=== PATIENT | female | born 1955 | race African-American/Black ===

== ENCOUNTER 2017-01-03 22:50 | Emergency (ER) | payer BC ==
[~2017-01-03] VITALS: Ht 172.7 cm; Wt 83.9 kg
--- NOTE | 2017-01-03 23:07 | NUR ---
PT BIBSELF FROM HOME C/O RIGHT FLANK PAIN/ ABD PAIN X 1 WK WITH BLOOD IN URINE. PT AOX3 RR EVEN AND UNLABORED. NO SOB NOTED. NAD NOTED. NO NVD AT THIS TIME. PT NOT DIAPHORETIC. PT GOWNED AND PLACED ON MONITOR WAITING FOR MD [place]. URINE COLLECTED.
--- NOTE | 2017-01-03 23:16 | NUR ---
DR. RODRIGUEZ AT BEDSIDE FOR EVAL.
[2017-01-03] MEDS ORDERED: ONDANSETRON HCL/PF 4 MG/2 ML VIAL IVP ONE (23:30)
[2017-01-03] MEDS ORDERED: HYDROMORPHONE INJ 2 MG/ML DISP.SYRIN IV ONE (23:30)
[2017-01-03] MEDS ORDERED: ONDANSETRON HCL/PF 4 MG/2 ML VIAL ONE (23:32)
[2017-01-03] MEDS ORDERED: HYDROMORPHONE INJ 2 MG/ML DISP.SYRIN ONE (23:33)
--- NOTE | 2017-01-03 23:38 | NUR ---
PT TO RADIOLOGY FOR CT ABD/PELVIS
[2017-01-03 23:40] LABS: APPEARANCE,URINE CLOUDY (CLEAR); BLOOD, URINE 3+ Ery/uL (NEGATIVE); COLOR,URINE YELLOW (YELLOW); PROTEIN,URINE TRACE mg/dl (NEGATIVE); UGLUCOSE NEGATIVE (NEGATIVE)
[2017-01-03 23:41] LABS: BILIRUBIN,URINE NEGATIVE (NEGATIVE); KETONES,URINE NEGATIVE (NEGATIVE); LEUKOCYTE ESTERASE ,URINE NEGATIVE (NEGATIVE); NITRITE, URINE POSITIVE (NEGATIVE)
[2017-01-03 23:48] LABS: CALCIUM, SERUM 8.8 mg/dL (8.5-10.1); CREATININE 0.8 mg/dL (0.6-1.3); POTASSIUM 3.9 mmol/L (3.5-5.1)
[2017-01-03 23:50] LABS: HEMATOCRIT 41 % (33-45); HEMOGLOBIN 13.5 g/dL (11.5-14.8); LYMPHOCYTES # (AUTO) 1.6 /CMM (0.8-4.8); LYMPHOCYTES % (AUTO) 15.4 % (20.0-44.0); MEAN CORPUSCULAR HEMOGLOBIN 27 PG (26.0-33.0); MEAN CORPUSCULAR HGB CONC 33 g/dl (31.0-36.0); MEAN CORPUSCULAR VOLUME 84 fL (82-100); MONOCYTES # (AUTO) 0.4 /CMM (0.1-1.30); MONOCYTES % (AUTO) 4.2 % (2.0-12.0); NEUTROPHILS # (AUTO) 8.1 /CMM (1.8-8.9); NEUTROPHILS % (AUTO) 80.4 % (43.0-81.0); PLATELET COUNT (AUTO) 220 /CMM (150-450); RDW COEFFICIENT OF VARIATION 14.6 (11.5-15.0); RED BLOOD CELL COUNT(AUTO) 4.92 MIL/uL (4.0-5.2); WHITE BLOOD COUNT (AUTO) 10.1 K/uL (4.3-11.0)
--- NOTE | 2017-01-03 23:51 | NUR ---
PT RETURNED FROM CT.
[2017-01-03 23:54] LABS: ALBUMIN 3.6 g/dL (3.4-5.0); BILIRUBIN,DIRECT 0.1 mg/dL (0.0-0.2); BILIRUBIN,TOTAL 0.5 mg/dL (0.2-1.0); TOTAL PROTEIN, SERUM 8.1 g/dL (6.4-8.2)
[2017-01-03 23:57] LABS: BACTERIA,URINE 4+ /HPF (None Seen); RBC,URINE 81-100 /HPF (0-2); SQUAMOUS EPITHELIAL CELL,UR Rare /HPF (None Seen)
[2017-01-04 00:06] LABS: INR 1.2 (0.87-1.13)
--- NOTE | 2017-01-04 01:18 | NUR ---
DR. RODRIGUEZ AT BEDSIDE SPEAKING TO PT REGARDING RESULTS.
[2017-01-04] MEDS ORDERED: CEPHALEXIN MONOHYDRATE 500 MG CAPSULE PO ONE ×2 (01:20→01:30)
--- NOTE | 2017-01-04 01:52 | NUR ---
IV removed. Catheter intact and site benign. Pressure and 4x4 applied to site. No bleeding noted. Patient discharged to home in stable condition. Written and verbal after care instructions given. Patient verbalizes understanding of instruction. ambulatory with a steady gait. instructed pt not to drive. pt verbalized understanding.
[2017-01-04 01:54] VITALS: BP 135/57
== END 2017-01-04 01:55 | disposition home or self-care (01) ==
LOC: ER 22:52
DX: N12 Tubulo-interstitial nephritis, not specified as acute or chronic (principal); I11.0 Hypertensive heart disease with heart failure; I50.9 Heart failure, unspecified; E05.90 Thyrotoxicosis, unspecified without thyrotoxic crisis or storm
CPT/HCPCS: 36415; 74176; 80048; 80076; 81001; 83690; 85025; 85610; 87077; 87086; 87186 ×2; 96374; 96375; 99285; A4606; J1170; J2405; Z7610; 71250-TC; 81000-TC

== ENCOUNTER 2017-04-02 22:56 | Emergency (ER) | payer BC ==
[~2017-04-02] VITALS: Ht 172.7 cm; Wt 86.2 kg
[2017-04-02] MEDS ORDERED: IBUPROFEN 400 MG TABLET PO ONE (23:30)
--- NOTE | 2017-04-02 23:30 | NUR ---
PT PRESENTED TO THE ER WITH A C/O RT HAND PAIN AND EDEMA S/P FALL. PT STATED THAT SHE TRIED TO BREAK HER FALL AND INJURED HER HAND. PT AMBULATED TO BED #4 AND REC'D AN ICE PACK.
[2017-04-02] MEDS ORDERED: IBUPROFEN 400 MG TABLET ONE (23:59)
--- NOTE | 2017-04-03 00:26 | NUR ---
Patient discharged to home in stable condition. Written and verbal after care instructions given. Patient verbalizes understanding of instruction AND RX. PT IS TAKING A TAXI HOME. VSS.
--- NOTE | 2017-04-03 00:26 | NUR ---
ORTHO GLASS SHORT ARM SPLINT APPLIED.
[2017-04-03 00:27] VITALS: BP 128/81
== END 2017-04-03 00:28 | disposition home or self-care (01) ==
LOC: ER 22:59
DX: S62.642A Nondisplaced fracture of proximal phalanx of right middle finger, initial encounter for closed fracture (principal); I10 Essential (primary) hypertension; I50.9 Heart failure, unspecified; E05.90 Thyrotoxicosis, unspecified without thyrotoxic crisis or storm; W19.XXXA Unspecified fall, initial encounter; Y93.89 Activity, other specified; Y92.89 Other specified places as the place of occurrence of the external cause; Y99.8 Other external cause status
CPT/HCPCS: 29125; 73130; 99284; A4606; Z7610